=== PATIENT | female | born 1955 | race Caucasian/White ===

== ENCOUNTER 2018-03-04 21:42 | Emergency (ER) | payer OTHER ==
[~2018-03-04] VITALS: Ht 154.9 cm; Wt 65.9 kg
[2018-03-04] MEDS ORDERED: HYDROcodone/acetaminophen 5mg/325mg tablet PO STA (21:54)
[2018-03-04] MEDS ORDERED: morphine 10mg/ml inj. IM ONE (22:30)
[2018-03-04] MEDS ORDERED: ondansetron/PF 4mg/2ml inj IM ONE (22:30)
[2018-03-04] MEDS ORDERED: HYDR-3965 PO (22:36)
[2018-03-04] MEDS ORDERED: ONDA8TAB9 PO (22:36)
[2018-03-04 23:15] VITALS: BP 153/100
== END 2018-03-04 23:18 | disposition home or self-care (01) ==
LOC: ER 21:43
DX: S82.852A Displaced trimalleolar fracture of left lower leg, initial encounter for closed fracture (principal); Z90.49 Acquired absence of other specified parts of digestive tract; Z90.710 Acquired absence of both cervix and uterus; Z87.891 Personal history of nicotine dependence; Z79.899 Other long term (current) drug therapy; W01.0XXA Fall on same level from slipping, tripping and stumbling without subsequent striking against object, initial encounter; Y93.89 Activity, other specified; Y92.89 Other specified places as the place of occurrence of the external cause; Y99.8 Other external cause status
CPT/HCPCS: 29515; 73610; 96372; 99284; A6449; J2270; J2405

== ENCOUNTER 2018-03-09 14:27 | Outpatient (CLI) | payer OTHER ==
[~2018-03-09] VITALS: Ht 154.9 cm; Wt 66.7 kg
[2018-03-09 14:26] VITALS: BP 132/80
[~2018-03-09 14:27] MED LIST: HYDR-3965 PO; ONDA8TAB9 PO
== END 2018-03-09 15:00 | disposition home or self-care (01) ==
LOC: ORTHO 14:27
PROVIDERS: ATTEND Nurse Practitioner Family
DX: S82.852A Displaced trimalleolar fracture of left lower leg, initial encounter for closed fracture (principal); F41.9 Anxiety disorder, unspecified; Z87.891 Personal history of nicotine dependence; Z90.49 Acquired absence of other specified parts of digestive tract; Z90.710 Acquired absence of both cervix and uterus; W01.0XXA Fall on same level from slipping, tripping and stumbling without subsequent striking against object, initial encounter; Y93.89 Activity, other specified; Y92.89 Other specified places as the place of occurrence of the external cause; Y99.8 Other external cause status
CPT/HCPCS: 99215; A6446; A6449

== ENCOUNTER 2018-04-01 11:17 | Outpatient (CLI) | payer OTHER ==
[~2018-04-01 11:17] MED LIST changes: +ACET-2119 PO; -HYDR-3965 PO; +IBUP-24 PO; +IMIP10TA26 PO; +MELA3TAB PO; -ONDA8TAB9 PO
[2018-04-01 11:29] VITALS: BP 120/88
== END 2018-04-01 12:02 | disposition home or self-care (01) ==
LOC: ORTHO 11:17
PROVIDERS: ATTEND Nurse Practitioner Family
DX: S82.852D Displaced trimalleolar fracture of left lower leg, subsequent encounter for closed fracture with routine healing (principal); F41.9 Anxiety disorder, unspecified; Z87.891 Personal history of nicotine dependence; Z88.8 Allergy status to other drugs, medicaments and biological substances; W01.0XXD Fall on same level from slipping, tripping and stumbling without subsequent striking against object, subsequent encounter
CPT/HCPCS: 99214; A4590; A6449

== ENCOUNTER 2018-04-21 11:05 | Outpatient (CLI) | payer OTHER ==
[2018-04-21 10:50] VITALS: BP 133/85
== END 2018-04-21 11:22 | disposition home or self-care (01) ==
LOC: ORTHO 11:05
PROVIDERS: ATTEND Nurse Practitioner Family
DX: S82.855D Nondisplaced trimalleolar fracture of left lower leg, subsequent encounter for closed fracture with routine healing (principal); F41.9 Anxiety disorder, unspecified; Z72.89 Other problems related to lifestyle; Z98.890 Other specified postprocedural states; Z88.8 Allergy status to other drugs, medicaments and biological substances; W01.0XXD Fall on same level from slipping, tripping and stumbling without subsequent striking against object, subsequent encounter
CPT/HCPCS: 73600; 99213; L4360

== ENCOUNTER 2018-05-12 11:12 | Outpatient (CLI) | payer OTHER ==
[2018-05-12 11:08] VITALS: BP 133/94
== END 2018-05-12 11:38 | disposition home or self-care (01) ==
LOC: ORTHO 11:12
PROVIDERS: ATTEND Nurse Practitioner Family
DX: S82.852D Displaced trimalleolar fracture of left lower leg, subsequent encounter for closed fracture with routine healing (principal); Z72.89 Other problems related to lifestyle; Z87.891 Personal history of nicotine dependence; Z88.6 Allergy status to analgesic agent; W18.09XD Striking against other object with subsequent fall, subsequent encounter
CPT/HCPCS: 73610; 99213

== ENCOUNTER 2018-06-02 10:34 | Outpatient (CLI) | payer OTHER ==
[2018-06-02 10:27] VITALS: BP 125/83
== END 2018-06-02 11:16 | disposition home or self-care (01) ==
LOC: ORTHO 10:34
PROVIDERS: ATTEND Nurse Practitioner Family
DX: S82.852G Displaced trimalleolar fracture of left lower leg, subsequent encounter for closed fracture with delayed healing (principal); F41.9 Anxiety disorder, unspecified; M85.872 Other specified disorders of bone density and structure, left ankle and foot; Z88.6 Allergy status to analgesic agent; Z87.891 Personal history of nicotine dependence; W01.0XXD Fall on same level from slipping, tripping and stumbling without subsequent striking against object, subsequent encounter
CPT/HCPCS: 73600; 99213

== ENCOUNTER 2018-06-22 11:09 | Outpatient (CLI) | payer OTHER ==
[2018-06-22 11:07] VITALS: BP 135/81
== END 2018-06-22 11:42 | disposition home or self-care (01) ==
LOC: ORTHO 11:09
PROVIDERS: ATTEND Nurse Practitioner Family
DX: S82.852K Displaced trimalleolar fracture of left lower leg, subsequent encounter for closed fracture with nonunion (principal); F41.9 Anxiety disorder, unspecified; Z87.891 Personal history of nicotine dependence; Z88.8 Allergy status to other drugs, medicaments and biological substances; W01.0XXD Fall on same level from slipping, tripping and stumbling without subsequent striking against object, subsequent encounter
CPT/HCPCS: 73600; 99213

== ENCOUNTER 2018-08-02 09:35 | Outpatient (CLI) | payer OTHER ==
[2018-08-02 09:35] VITALS: BP 125/82
== END 2018-08-02 10:01 | disposition home or self-care (01) ==
LOC: ORTHO 09:35
PROVIDERS: ATTEND Nurse Practitioner Family
DX: S82.852D Displaced trimalleolar fracture of left lower leg, subsequent encounter for closed fracture with routine healing (principal); Z98.890 Other specified postprocedural states; Z88.8 Allergy status to other drugs, medicaments and biological substances; W01.0XXD Fall on same level from slipping, tripping and stumbling without subsequent striking against object, subsequent encounter
CPT/HCPCS: 73600; 99213

== ENCOUNTER 2018-08-24 11:12 | Outpatient (CLI) | payer OTHER ==
[2018-08-24 11:32] VITALS: BP 125/80
== END 2018-08-24 11:47 | disposition home or self-care (01) ==
LOC: ORTHO 11:12
PROVIDERS: ATTEND Nurse Practitioner Family
DX: S82.842D Displaced bimalleolar fracture of left lower leg, subsequent encounter for closed fracture with routine healing (principal); Z88.6 Allergy status to analgesic agent; Z87.891 Personal history of nicotine dependence; Z72.89 Other problems related to lifestyle; W01.0XXD Fall on same level from slipping, tripping and stumbling without subsequent striking against object, subsequent encounter
CPT/HCPCS: 73600; 99213

== ENCOUNTER 2018-09-21 10:49 | Outpatient (CLI) | payer OTHER | END 2018-09-21 11:47 | disposition home or self-care (01) | LOC: ORTHO 10:49 | PROVIDERS: ATTEND Nurse Practitioner Family | DX: S82.852D Displaced trimalleolar fracture of left lower leg, subsequent encounter for closed fracture with routine healing (principal); F17.200 Nicotine dependence, unspecified, uncomplicated; Z88.6 Allergy status to analgesic agent; W01.0XXD Fall on same level from slipping, tripping and stumbling without subsequent striking against object, subsequent encounter | CPT/HCPCS: 73600; 99213 ==

== ENCOUNTER 2019-12-15 07:08 | Inpatient (IN) | payer OTHER ==
[2019-12-08 10:35] LABS: EOSINOPHILS % (AUTO) 0 % (0-6); MEAN PLATELET VOLUME 7.2 FL (7.4-10.4)
[2019-12-08 10:37] LABS: BASOPHILS % (AUTO) 0.1 % (0-1); LYMPHOCYTES # (AUTO) 1.6 X10'3 (1.1-4.8); MEAN CORPUSCULAR HEMOGLOBIN 19.8 PG (27.0-31.0); MEAN CORPUSCULAR HGB CONC 30.4 g/dL (33.0-36.5); MEAN CORPUSCULAR VOLUME 65.1 FL (78-98); MONOCYTES # (AUTO) 0.9 X10'3 (0-0.9); MONOCYTES % (AUTO) 11.1 % (2-12); NEUTROPHILS # (AUTO) 5.5 X10'3 (1.8-7.7); NEUTROPHILS % (AUTO) 68.8 % (42-75); PRE OP HEMATOCRIT 27.3 % (35.0-45.0); PRE OP PLATELET COUNT 606 X10'3 (140-440); RED BLOOD COUNT 4.19 X10'6 (4.20-5.60); RED CELL DISTRIBUTION WIDTH 19.5 % (11.5-14.5)
[2019-12-08 10:40] LABS: PRE OP HEMOGLOBIN 8.3 g/dL (12.0-16.0)
[2019-12-08 10:52] LABS: ALBUMIN 3.3 G/DL (3.4-5.0); ALBUMIN/GLOBULIN RATIO 0.9 (1.1-1.5); ALKALINE PHOSPHATASE 125 IU/L (46-116); BLOOD UREA NITROGEN 8 MG/DL (7-18); BUN/CREATININE RATIO 13.6 (6.6-38.0); CALCIUM 8.4 MG/DL (8.5-10.1); CHLORIDE 105 MMOL/L (99-107); CREATININE 0.59 MG/DL (0.40-0.90); PRE OP ALT 13 U/L (30-65); PRE OP ANION GAP 7 (8-16); PRE OP AST 15 U/L (10-37); PRE OP BILIRUB, TOTAL 0.2 MG/DL (0.0-1.0); PRE OP GLUCOSE 86 MG/DL (70-104); PRE OP POTASSIUM 3.7 MMOL/L (3.4-5.1); PRE OP SODIUM 140 MMOL/L (135-145); TOTAL CARBON DIOXIDE 27.7 MMOL/L (24-32); eGFR > 90 ML/MIN
[2019-12-08 10:55] LABS: LARGE PLATELETS FEW; PLATELET ESTIMATE INCREASED
[2019-12-08 10:56] LABS: ANISOCYTOSIS 2+; MICROCYTOSIS 2+
[2019-12-08 10:57] LABS: HYPOCHROMASIA 1+; POLYCHROMASIA FEW
[~2019-12-15] VITALS: Ht 157.5 cm; Wt 64.0 kg
[2019-12-15] VITALS (23 sets, daily range): BP systolic 85–120; BP diastolic 50–80
[~2019-12-15 07:08] MED LIST changes: -ACET-2119 PO; +FERR-39 PO; -IBUP-24 PO; -MELA3TAB PO; +MELA3TAB39 PO; +MULT-1085 PO; +ceFOXitin sod/dextrose 2g/50ml 50 ML IV ONE; +famotidine 20mg tablet PO ONE; +ringers solution, lacted 1,000 ML IV SCH
[2019-12-15] MEDS ORDERED: LIDOcaine 1% 30ml preserv. free vial ONE (09:03)
[2019-12-15] MEDS ORDERED: BUPIVAcaine/PF 2.5 mg/ml (0.25%) 30ml vial ONE (09:03)
[2019-12-15] MEDS ORDERED: fentaNYL/PF 50MCG/1 ML 2ML syringe ONE ×2 (09:23→13:24)
[2019-12-15] MEDS ORDERED: midazolam 2 mg/2 ml injection ONE (09:24)
[2019-12-15] MEDS ORDERED: rocuronium 10mg/ml inj IV ONE ×2 (09:35→11:04)
[2019-12-15] MEDS ORDERED: sevoflurane 250ml liquid IH ONE (09:35)
[2019-12-15] MEDS ORDERED: INDOCYANINE GREEN 25 MG/10 ML VIAL IV ONE (10:42)
[2019-12-15] MEDS ORDERED: ePHEDrine 50MG/ML INJ. ONE (11:04)
[2019-12-15] MEDS ORDERED: propofol inj 20 ML IV ONE (11:04)
[2019-12-15] MEDS ORDERED: ondansetron/PF 4mg/2ml inj ONE (11:04)
[2019-12-15] MEDS ORDERED: neostigmine methylsulfate 1 MG/ML 10ml vial ONE (11:04)
[2019-12-15] MEDS ORDERED: dexamethasone sod phosphate 4mg/ml inj. ONE (11:04)
[2019-12-15] MEDS ORDERED: glycopyrrolate 0.2mg/ml inj ONE (11:04)
[2019-12-15] MEDS ORDERED: LIDOcaine 2% (20mg/ml) 5ml vial ONE (11:04)
[2019-12-15] MEDS ORDERED: ringers solution, lacted 1,000 ML IV SCH (12:26)
[2019-12-15] MEDS ORDERED: ondansetron/PF 4mg/2ml inj IV PRN (12:30)
[2019-12-15] MEDS ORDERED: meperidine/PF 25mg/ml syringe IV PRN (12:30)
[2019-12-15] MEDS ORDERED: morphine 4 MG/ML inj SYRINge IV PRN (12:30)
[2019-12-15] MEDS ORDERED: morphine 2 MG/ML inj. syringe IV PRN (12:30)
--- NOTE | 2019-12-15 13:49 | NUR ---
Received from OR via BED , accompanied by Anesthesiologist DR SPARKS and report given by Anesthesiolgist. VSS. AWAKES-C/O PAIN YET FALLS ASLEEP DIRECTLY AFTER. IV PATENT #20 LEFT HAND 100MLS/HR. ABD SOFT SLIGHTLY DISTENDED WITH BANDAIDS AND 2X2 PRESENT CDI. ISTAT COMPLETED. DR SPARKS AND DR ELDRIDGE AT THE BEDSIDE AND REVIEWED RESULTS. JARED, 'S INTACT.
[2019-12-15 14:10] LABS: ISTAT ANION GAP 8 (8-12); ISTAT BUN 5 mg/dL (6-19); ISTAT CL 108 mmol/L (99-107); ISTAT CREATININE 0.6 mg/dL (0.6-1.1); ISTAT GLUCOSE 178 mg/dL (70-104); ISTAT HGB 7.1 g/dl (12.0-16.0); ISTAT Hct 21 %PCV (35-48); ISTAT IONIZED CALCIUM 1.08 mmol/L (1.03-1.32); ISTAT K 4.2 mmol/L (3.5-5.1); ISTAT NA 138 mmol/L (135-145); ISTAT TOTAL CO2 22 mmol/L (24-32); ISTAT eGFR > 90 ML/MIN; POC BUN/CREATININE RATIO 8.3 (6.6-38.0)
[2019-12-15] MEDS ORDERED: CADD PCA waste documentation MC PRN (14:15)
[2019-12-15] MEDS ORDERED: naloxone 0.4 mg/ml inj IV PRN (14:15)
[2019-12-15] MEDS ORDERED: furosemide 40mg/4ml inj ONE (14:16)
[2019-12-15] MEDS: meperidine/PF 25mg/ml syringe IV PRN ×2 (14:20→14:31)
[2019-12-15] MEDS ORDERED: Melatonin 3mg tablet PO PRN (14:25)
[2019-12-15] MEDS: HYDROmorphone/NS 1 mg/ml CADD 50 ML IV SCH ×4 (14:57→23:00)
[2019-12-15] MEDS: Potassium Cl inj 20 MEQ in ringers solution, lacted 1,000 ML IV SCH (15:00)
--- NOTE | 2019-12-15 15:29 | NUR ---
IV PATENT #20 LEFT HAND. HATTIE PHILLIPS INPLACE WITH TEACHING PROVIDED AND USE DEMONSTRATED, PT STATES "IT HURTS" RECEIVES PAIN MEDICATION AND PROMPTLY FALLS ASLEEP. ABD DSG AND BANDAIDS CDI. ABD SOFT/NONDISTENDED. F/C WITH CLEAR YELLOW DRAINAGE 150 MLS SINCE ARRIVAL IN PACU. REPORT GIVEN TO CHIDI COUCH WITH ALL QUESTIONS ANSWERED. TRANSPORTED TO SURGICAL FLOOR VIA BED BY RN WITH RN TO RECEIVE PT. Addendum: 12/15/19 at 1549 by Marcelle Montes RN Amended: Links added.
[2019-12-15 16:17] LABS: HEMATOCRIT 22.8 % (35.0-45.0); MEAN CORPUSCULAR HEMOGLOBIN 19.6 PG (27.0-31.0); MEAN CORPUSCULAR HGB CONC 29.5 g/dL (33.0-36.5); MEAN CORPUSCULAR VOLUME 66.4 FL (78-98); MEAN PLATELET VOLUME 6.9 FL (7.4-10.4); PLATELET COUNT 485 X10'3 (140-440); RED BLOOD COUNT 3.44 X10'6 (4.20-5.60); RED CELL DISTRIBUTION WIDTH 19.4 % (11.5-14.5); WHITE BLOOD COUNT 8.4 X10'3 (4.5-11.0)
[2019-12-15 16:19] LABS: HEMOGLOBIN 6.7 g/dl (12.0-16.0)
--- NOTE | 2019-12-15 16:25 | NUR ---
Patient in room [facility]. I have received report from Yasmeen RN - Charge, she received report from recovery for me and had the opportunity to ask questions and assume patient care.
--- NOTE | 2019-12-15 16:43 | NUR ---
Dr Dumont notified of HGB 6.7. Orders received to infuse 1 unit PRBC's.
[2019-12-15 16:48] LABS: ANISOCYTOSIS 2+; ELLIPTOCYTES 1+; HYPOCHROMASIA 1+; MICROCYTOSIS 2+
[2019-12-15 16:49] LABS: PLATELET ESTIMATE INCREASED
--- NOTE | 2019-12-15 18:30 | NUR ---
Patient in room [facility]. I have received report from LUKE COUCH and had the opportunity to ask questions and assume patient care.
[2019-12-16] VITALS: BP 102/52
[2019-12-16] MEDS: IMIPRAMINE 10 MG PO SCH ×2 (00:01→21:46)
[2019-12-16] MEDS: HYDROmorphone/NS 1 mg/ml CADD 50 ML IV SCH ×12 (01:00→23:00)
[2019-12-16] MEDS: Potassium Cl inj 20 MEQ in ringers solution, lacted 1,000 ML IV SCH ×4 (02:00→23:20)
[2019-12-16 04:00] VITALS: BP 96/58
[2019-12-16 06:06] LABS: BASOPHILS % (AUTO) 0.3 % (0-1); EOSINOPHILS % (AUTO) 0 % (0-6); HEMATOCRIT 23.7 % (35.0-45.0); HEMOGLOBIN 7.4 g/dl (12.0-16.0); LYMPHOCYTES # (AUTO) 0.8 X10'3 (1.1-4.8); LYMPHOCYTES % (AUTO) 8.3 % (21-51); MEAN CORPUSCULAR HEMOGLOBIN 22.1 PG (27.0-31.0); MEAN CORPUSCULAR HGB CONC 31.2 g/dL (33.0-36.5); MEAN CORPUSCULAR VOLUME 70.6 FL (78-98); MEAN PLATELET VOLUME 7.2 FL (7.4-10.4); MONOCYTES # (AUTO) 1.2 X10'3 (0-0.9); MONOCYTES % (AUTO) 11.8 % (2-12); NEUTROPHILS # (AUTO) 8.1 X10'3 (1.8-7.7); NEUTROPHILS % (AUTO) 79.6 % (42-75); PLATELET COUNT 480 X10'3 (140-440); RED BLOOD COUNT 3.35 X10'6 (4.20-5.60); RED CELL DISTRIBUTION WIDTH 21.9 % (11.5-14.5); WHITE BLOOD COUNT 10.1 X10'3 (4.5-11.0)
[2019-12-16 06:12] LABS: ALBUMIN 2.8 G/DL (3.4-5.0); ANION GAP 6 (8-16); BLOOD UREA NITROGEN 5 MG/DL (7-18); BUN/CREATININE RATIO 7.6 (6.6-38.0); CALCIUM 8.1 MG/DL (8.5-10.1); CHLORIDE 106 MMOL/L (99-107); CREATININE 0.66 MG/DL (0.40-0.90); GLUCOSE 118 MG/DL (70-104); POTASSIUM 4.3 MMOL/L (3.5-5.1); SODIUM 139 MMOL/L (135-145); TOTAL CARBON DIOXIDE 27.1 MMOL/L (24-32); eGFR > 90 ML/MIN
--- NOTE | 2019-12-16 06:30 | NUR ---
Problems reprioritized. Patient report given, questions answered & plan of care reviewed with LUKE COUCH.
--- NOTE | 2019-12-16 06:38 | NUR ---
Patient in room [facility]. I have received report from Enedina Mcconnell RN and had the opportunity to ask questions and assume patient care.
[2019-12-16 08:00] VITALS: BP 93/56
[2019-12-16] MEDS: enoxaparin 40mg/0.4ml syringe SQ SCH (08:57)
[2019-12-16] MEDS: potassium CL 20mEq in D5-1/2NS 1,000 ML IV SCH (09:19)
[2019-12-16 11:00] VITALS: BP 106/56
--- NOTE | 2019-12-16 16:58 | NUR ---
Malnutrition consult: Pt seen at bedside reports UBW 140-150 lbs and denies wt loss. Current documented wt is 141 lbs. Pt with no decrease in muscle strength, edema, or visible fat or muscle wasting. No concerns for malnutrition at this time. Pt endorses a good appetite and denies food allergies or difficulty chewing or swallowing. Will continue to follow. Addendum: 12/16/19 at [address] Amended: Links added.
[2019-12-16 18:00] VITALS: BP 119/67
--- NOTE | 2019-12-16 18:30 | NUR ---
Patient in room [facility]. I have received report from LUKE COUCH and had the opportunity to ask questions and assume patient care.
[2019-12-17] VITALS: BP 98/66
[2019-12-17] MEDS: HYDROmorphone/NS 1 mg/ml CADD 50 ML IV SCH ×12 (01:00→23:00)
[2019-12-17] MEDS: ondansetron/PF 4mg/2ml inj IV PRN ×3 (03:34→17:43)
[2019-12-17] MEDS: potassium CL 20mEq in D5-1/2NS 1,000 ML IV SCH ×2 (03:37→20:49)
[2019-12-17 05:29] LABS: BASOPHILS % (AUTO) 0.2 % (0-1); EOSINOPHILS % (AUTO) 0.1 % (0-6); HEMATOCRIT 25.1 % (35.0-45.0); HEMOGLOBIN 7.7 g/dl (12.0-16.0); LYMPHOCYTES # (AUTO) 1.2 X10'3 (1.1-4.8); LYMPHOCYTES % (AUTO) 10.6 % (21-51); MEAN CORPUSCULAR HEMOGLOBIN 21.3 PG (27.0-31.0); MEAN CORPUSCULAR HGB CONC 30.8 g/dL (33.0-36.5); MEAN CORPUSCULAR VOLUME 69.2 FL (78-98); MEAN PLATELET VOLUME 7.1 FL (7.4-10.4); MONOCYTES # (AUTO) 1.1 X10'3 (0-0.9); MONOCYTES % (AUTO) 9.9 % (2-12); NEUTROPHILS # (AUTO) 8.8 X10'3 (1.8-7.7); NEUTROPHILS % (AUTO) 79.2 % (42-75); PLATELET COUNT 566 X10'3 (140-440); RED BLOOD COUNT 3.63 X10'6 (4.20-5.60); RED CELL DISTRIBUTION WIDTH 21.4 % (11.5-14.5)
[2019-12-17 05:59] LABS: ALBUMIN 2.8 G/DL (3.4-5.0); ANION GAP 5 (8-16); BLOOD UREA NITROGEN 3 MG/DL (7-18); BUN/CREATININE RATIO 4.5 (6.6-38.0); CALCIUM 8.5 MG/DL (8.5-10.1); CHLORIDE 99 MMOL/L (99-107); CREATININE 0.67 MG/DL (0.40-0.90); GLUCOSE 120 MG/DL (70-104); POTASSIUM 3.6 MMOL/L (3.5-5.1); SODIUM 135 MMOL/L (135-145); TOTAL CARBON DIOXIDE 31.1 MMOL/L (24-32); eGFR 89 ML/MIN
--- NOTE | 2019-12-17 06:05 | NUR ---
Patient in room [facility]. I have received report from Enedina Mcconnell RN and had the opportunity to ask questions and assume patient care.
[2019-12-17 06:30] VITALS: BP 106/67
--- NOTE | 2019-12-17 06:30 | NUR ---
Problems reprioritized. Patient report given, questions answered & plan of care reviewed with ELAINE RN.
[2019-12-17] MEDS: enoxaparin 40mg/0.4ml syringe SQ SCH (09:46)
--- NOTE | 2019-12-17 11:00 | NUR ---
Attempted to insert 16fr NG tube. Pt unable to tolerate & mid through insertion pt refused any further insertion. Dr Dumont notified. No orders received except to try placing NG again if pt will comply.
[2019-12-17 11:46] VITALS: BP 114/67
--- NOTE | 2019-12-17 13:00 | NUR ---
Charge nurse attempted to insert 16fr NG tube. Pt again unable to tolerate & refused to have NG tube. Pt states she is no longer having pain & the nausea is very minimal. Dr Dumont to see pt soon.
[2019-12-17 18:00] VITALS: BP 117/73
--- NOTE | 2019-12-17 18:10 | NUR ---
Problems reprioritized. Patient report given, questions answered & plan of care reviewed with Enedina Mcconnell RN.
--- NOTE | 2019-12-17 18:30 | NUR ---
Patient in room [facility]. I have received report from ELAINE COUCH and had the opportunity to ask questions and assume patient care.
[2019-12-17] MEDS: IMIPRAMINE 10 MG PO SCH (20:50)
[2019-12-18] VITALS: BP 100/58
[2019-12-18] MEDS: HYDROmorphone/NS 1 mg/ml CADD 50 ML IV SCH ×5 (01:00→09:00)
[2019-12-18] MEDS: ondansetron/PF 4mg/2ml inj IV PRN ×2 (01:11→18:39)
[2019-12-18 05:39] LABS: BASOPHILS % (AUTO) 0.2 % (0-1); EOSINOPHILS % (AUTO) 0.1 % (0-6); HEMATOCRIT 24.8 % (35.0-45.0); HEMOGLOBIN 7.6 g/dl (12.0-16.0); LYMPHOCYTES # (AUTO) 0.6 X10'3 (1.1-4.8); LYMPHOCYTES % (AUTO) 9.8 % (21-51); MEAN CORPUSCULAR HEMOGLOBIN 21.1 PG (27.0-31.0); MEAN CORPUSCULAR HGB CONC 30.5 g/dL (33.0-36.5); MEAN CORPUSCULAR VOLUME 69.2 FL (78-98); MEAN PLATELET VOLUME 7.1 FL (7.4-10.4); MONOCYTES # (AUTO) 0.7 X10'3 (0-0.9); MONOCYTES % (AUTO) 10.2 % (2-12); NEUTROPHILS # (AUTO) 5.3 X10'3 (1.8-7.7); NEUTROPHILS % (AUTO) 79.7 % (42-75); PLATELET COUNT 501 X10'3 (140-440); RED BLOOD COUNT 3.59 X10'6 (4.20-5.60); RED CELL DISTRIBUTION WIDTH 21.2 % (11.5-14.5); WHITE BLOOD COUNT 6.6 X10'3 (4.5-11.0)
[2019-12-18 05:40] LABS: ALBUMIN 2.6 G/DL (3.4-5.0); ANION GAP 2 (8-16); BLOOD UREA NITROGEN 4 MG/DL (7-18); BUN/CREATININE RATIO 7.4 (6.6-38.0); CALCIUM 8.9 MG/DL (8.5-10.1); CHLORIDE 103 MMOL/L (99-107); CREATININE 0.54 MG/DL (0.40-0.90); GLUCOSE 108 MG/DL (70-104); POTASSIUM 3.6 MMOL/L (3.5-5.1); SODIUM 139 MMOL/L (135-145); TOTAL CARBON DIOXIDE 34.5 MMOL/L (24-32); eGFR > 90 ML/MIN
[2019-12-18 06:02] LABS: ANISOCYTOSIS 3+; MICROCYTOSIS 2+; PLATELET ESTIMATE INCREASED
[2019-12-18 06:04] LABS: ELLIPTOCYTES FEW; LARGE PLATELETS FEW
[2019-12-18 06:30] VITALS: BP 131/78
--- NOTE | 2019-12-18 06:30 | NUR ---
Problems reprioritized. Patient report given, questions answered & plan of care reviewed with ELAINE RN.
--- NOTE | 2019-12-18 06:30 | NUR ---
Patient in room [facility]. I have received report from Enedina Mcconnell RN and had the opportunity to ask questions and assume patient care.
[2019-12-18] MEDS: acetaminophen 325mg tablet PO PRN ×2 (09:29→16:55)
[2019-12-18] MEDS: enoxaparin 40mg/0.4ml syringe SQ SCH (09:30)
[2019-12-18] MEDS ORDERED: methylnaltrexone br 12mg/0.6ml inj***SubQ only SQ ONE (09:35)
[2019-12-18] MEDS ORDERED: CADD PCA waste documentation MC PRN (10:05)
[2019-12-18] MEDS: potassium CL 20mEq in D5-1/2NS 1,000 ML IV SCH (13:56)
--- NOTE | 2019-12-18 18:45 | NUR ---
Problems reprioritized. Patient report given, questions answered & plan of care reviewed with Carmelina RN.
[2019-12-18 20:00] VITALS: BP 141/80
[2019-12-18] MEDS: IMIPRAMINE 10 MG PO SCH (20:45)
[2019-12-19] VITALS: BP 144/85
[2019-12-19] MEDS: potassium CL 20mEq in D5-1/2NS 1,000 ML IV SCH ×2 (02:27→13:48)
[2019-12-19] MEDS: ondansetron/PF 4mg/2ml inj IV PRN (03:45)
[2019-12-19] MEDS: acetaminophen 325mg tablet PO PRN ×2 (05:10→16:19)
[2019-12-19] MEDS ORDERED: proMETHazine 25mg rectal suppository RC ONE (06:05)
[2019-12-19 06:26] LABS: BASOPHILS % (AUTO) 0.6 % (0-1); EOSINOPHILS % (AUTO) 0 % (0-6); HEMATOCRIT 25.7 % (35.0-45.0); HEMOGLOBIN 7.8 g/dl (12.0-16.0); LYMPHOCYTES # (AUTO) 0.5 X10'3 (1.1-4.8); LYMPHOCYTES % (AUTO) 9.7 % (21-51); MEAN CORPUSCULAR HEMOGLOBIN 20.8 PG (27.0-31.0); MEAN CORPUSCULAR HGB CONC 30.2 g/dL (33.0-36.5); MEAN CORPUSCULAR VOLUME 68.8 FL (78-98); MONOCYTES # (AUTO) 0.6 X10'3 (0-0.9); MONOCYTES % (AUTO) 10.1 % (2-12); NEUTROPHILS # (AUTO) 4.4 X10'3 (1.8-7.7); NEUTROPHILS % (AUTO) 79.6 % (42-75); PLATELET COUNT 528 X10'3 (140-440); RED BLOOD COUNT 3.74 X10'6 (4.20-5.60); RED CELL DISTRIBUTION WIDTH 21.3 % (11.5-14.5); WHITE BLOOD COUNT 5.5 X10'3 (4.5-11.0)
--- NOTE | 2019-12-19 06:28 | NUR ---
Patient in room [facility]. I have received report from KHOA ALEXANDER and had the opportunity to ask questions and assume patient care.
[2019-12-19 06:37] LABS: ALBUMIN 2.7 G/DL (3.4-5.0); ANION GAP 8 (8-16); BLOOD UREA NITROGEN 3 MG/DL (7-18); BUN/CREATININE RATIO 5.1 (6.6-38.0); CALCIUM 8.1 MG/DL (8.5-10.1); CHLORIDE 105 MMOL/L (99-107); CREATININE 0.59 MG/DL (0.40-0.90); GLUCOSE 115 MG/DL (70-104); POTASSIUM 3.8 MMOL/L (3.5-5.1); SODIUM 141 MMOL/L (135-145); TOTAL CARBON DIOXIDE 28.3 MMOL/L (24-32); eGFR > 90 ML/MIN
[2019-12-19] MEDS: enoxaparin 40mg/0.4ml syringe SQ SCH (07:56)
[2019-12-19 08:12] VITALS: BP 145/79
[2019-12-19] MEDS ORDERED: proCHLORperazine 10 MG/2 ml inj IV PRN (09:15)
[2019-12-19] MEDS ORDERED: scopolamine 1.5mg patch.TD72 TD ONE (09:15)
[2019-12-19 10:10] LABS: ANISOCYTOSIS 3+; ELLIPTOCYTES 1+; HYPOCHROMASIA 1+; MICROCYTOSIS 2+; PLATELET ESTIMATE INCREASED
[2019-12-19] MEDS ORDERED: ketorolac trometh. 30mg/ml inj. IV PRN (10:25)
[2019-12-19 11:00] VITALS: BP 144/87
--- NOTE | 2019-12-19 18:00 | NUR ---
Patient in room [facility]. I have received report from Elisha COUCH and had the opportunity to ask questions and assume patient care. Addendum: 12/20/19 at 0538 by Kacey Gonzalez RN 12/19/19 @ 1830. Received patient report from Ines COUCH and had the opportunity to ask questions and assume care.
--- NOTE | 2019-12-19 18:39 | NUR ---
Problems reprioritized. Patient report given, questions answered & plan of care reviewed with KHOA JIMENEZ.
[2019-12-19 20:00] VITALS: BP 142/89
[2019-12-19] MEDS: IMIPRAMINE 10 MG PO SCH (20:13)
[2019-12-19] MEDS ORDERED: zolpidem 5mg tablet PO SCH (21:00)
[2019-12-20] VITALS: BP 134/66
[2019-12-20] MEDS: acetaminophen 325mg tablet PO PRN ×2 (01:53→08:48)
[2019-12-20] MEDS: potassium CL 20mEq in D5-1/2NS 1,000 ML IV SCH (04:25)
--- NOTE | 2019-12-20 06:08 | NUR ---
Problems reprioritized. Patient report given, questions answered & plan of care reviewed with Indira RN.
[2019-12-20 08:00] VITALS: BP 130/72
[2019-12-20] MEDS: enoxaparin 40mg/0.4ml syringe SQ SCH (08:47)
[2019-12-20 11:00] VITALS: BP 123/75
--- NOTE | 2019-12-20 12:37 | NUR ---
Initial: Pt admitted for laparoscopic right hemicolectomy for colorectal cancer, POD #5. Pt passing flatus and having bowel movements per MD notes, LBM 6/2 documented as diarrhea. Patient with 100% PO intake while on clear liquid diet however documented to be refusing meals since advancement to full liquids with the exception of 100% PO intake at dinner last night. Pt c/o severe nausea, receiving PRN Zofran and PRN Compazine added to med list. Per physical assessment pt denies nausea today. Likely that PO intake will improve with improvement in nausea as pt was reporting a good appetite prior to nausea. Pending documentation of PO intake for today. Will continue to follow closely and monitor trends in PO intake and need for nutrition intervention. Recommendations: 1) Advance to low fiber diet as medically indicated 2) Monitor need for ONS 3) Bowel care PRN 4) Scaled wt per rx Addendum: 12/20/19 at [address] Amended: Links added.
== END 2019-12-20 16:00 | disposition home or self-care (01) | DRG 331 ==
LOC: PAS IN 07:08 → UNDOADMIN 07:08 → EDSTATUS 09:00 → PAS IN 14:11 → SUR 3N 15:37 → PAS IN 15:37
PROVIDERS: ADMIT Surgery; ATTEND Surgery
PROC: 8E0Y3CZ Robotic Assisted Procedure of Lower Extremity, Percutaneous Approach (ICD-10-PCS; 2019-12-15)
PROC: 30233N1 Transfusion of Nonautologous Red Blood Cells into Peripheral Vein, Percutaneous Approach (ICD-10-PCS; 2019-12-15)
PROC: B43FZZZ Magnetic Resonance Imaging (MRI) of Right Lower Extremity Arteries (ICD-10-PCS; 2019-12-15)
PROC: 0DTF4ZZ Resection of Right Large Intestine, Percutaneous Endoscopic Approach (ICD-10-PCS; principal; 2019-12-15 09:35)
DX: C19 Malignant neoplasm of rectosigmoid junction (principal); Z03.818 Encounter for observation for suspected exposure to other biological agents ruled out; K66.0 Peritoneal adhesions (postprocedural) (postinfection)
CPT/HCPCS: Z7506; Z7508; 36415; 74018; 80047; 80048; 80053; 82378; 82948; 85025; 85027; 85610; 85730; 86885; 86900; 86901; 86920; 87081; 93005; A4215; A4618; C1758; G0378; J0694; J1100; J1170; J1650; J1940; J2001; J2175; J2212; J2250; J2405; J2704; J2710; J3010; J3480; J3490; J7030; J7120; P9016